=== PATIENT | female | born 1975 | race Two or more races ===

== ENCOUNTER 2025-01-14 11:04 | Emergency (ER) | payer OTHER ==
[~2025-01-14] VITALS: Ht 167.6 cm; Wt 88.5 kg
[2025-01-14] MEDS ORDERED: KETOROLAC TROME10 MG PO (11:28)
[2025-01-14] MEDS ORDERED: LEVOXYL175 MCG PO (11:28)
[2025-01-14] MEDS ORDERED: METOPROLOL SUCC25 MG PO (11:29)
[2025-01-14] MEDS ORDERED: PEPCID AC20 MG PO ×2 (11:29→15:32)
[2025-01-14] MEDS ORDERED: 0.9 % SODIUM CHLORIDE 1,000 ML IV ONE (12:00)
[2025-01-14] MEDS ORDERED: KETOROLAC TROMETHAMINE 30 MG VIAL IV ONE (12:00)
[2025-01-14 13:07] LABS: BASO % 0.4 % (0.1-1.2); EOS # 0.11 (0.04-0.54); EOS % 1.6 % (0.7-7.0); LYMPH # 2.51 (1.18-3.74); LYMPH % 36.2 % (19.3-53.1); MEAN PLATELET VOLUME 9.90 fl (9.4-12.4); MONO # 0.50 (0.24-0.82); MONO % 7.2 % (4.7-12.5); NEUT # 3.78 (1.56-6.13); NEUT % 54.5 % (34.0-71.1); RED CELL DISTRIBUTION WIDTH 12.2 % (11.6-14.4)
[2025-01-14 13:26] LABS: ALT/SGPT 32.0 U/L (12-78); AST/SGOT 19.0 U/L (15-37); BILIRUBIN TOTAL 0.91 mg/dL (0.3-1.2); BUN CREA RATIO 21.0 (7.0-25.0); CREATININE SERUM 1.01 mg/dL (0.55-1.02); GFR 58.02; GLOBULINA 3.7 G/DL (2.4-3.5); GLUCOSE FASTING 83.0 mg/dL (65-100); OSMOLALITY SERUM 289.0 MOSM/KG (275-295)
[2025-01-14 14:13] LABS: URINE APPEARANCE Clear; URINE BILIRRUBIN Negative (NEGATIVE); URINE BLOOD Small; URINE COLOR Yellow; URINE GLUCOSE Negative (NEGATIVE); URINE KETONE Trace (NEGATIVE); URINE LEUKOCYTE Negative; URINE NITRATE Negative; URINE PROTEIN Negative (NEGATIVE); URINE UROBILINOGEN 1.0 E.U./dl
[2025-01-14 14:16] LABS: URINE BACTERIA 56.3 uL (0.0-1933); URINE EPITHELIAL CELLS 2.3 uL (0.0-38.8); URINE RBC 49.2 uL (0.0-20.8); URINE WBC 3.9 uL (0.0-23.2)
[2025-01-14 14:21] LABS: INR 1.0
[2025-01-14 14:23] LABS: URINE CAST 0.00 uL (0.0-1.40)
[2025-01-14] MEDS ORDERED: METHYLPREDNISOLONE SOD SUCC 125 MG VIAL IV ONE (14:30)
[2025-01-14] MEDS ORDERED: DIPHENHYDRAMINE HCL 50 MG/ML VIAL 1ML IV ONE (14:30)
[2025-01-14] MEDS ORDERED: KETO10TA2 PO (15:32)
[2025-01-14] MEDS ORDERED: CIPRO500 MG PO (15:32)
[2025-01-14] MEDS ORDERED: PROBIOTIC1 EAC2 PO (15:32)
[2025-01-14] MEDS ORDERED: METRONIDAZOLE500 MG PO (15:32)
== END 2025-01-14 15:39 | disposition home or self-care (01) ==
LOC: ER 11:04
PROVIDERS: General Practice
DX: K62.89 Other specified diseases of anus and rectum (principal); K60.30 Anal fistula, unspecified; E03.8 Other specified hypothyroidism; Z88.5 Allergy status to narcotic agent
CPT/HCPCS: 36415; 74177; Q9965

== ENCOUNTER 2025-03-05 13:09 | Outpatient (CLI) | payer OTHER ==
[~2025-03-05 13:09] MED LIST: CIPRO500 MG PO; KETO10TA2 PO; KETOROLAC TROME10 MG PO; LEVO-T150 MCG; LEVOXYL175 MCG PO; METOPROLOL SUCC25 MG PO; METRONIDAZOLE500 MG PO; PEPCID 40MG; PEPCID AC20 MG PO; PROBIOTIC1 EAC2 PO
== END 2025-03-05 13:11 | disposition home or self-care (01) ==
LOC: NUCLEAR 13:09
PROVIDERS: ATTEND Internal Medicine
DX: I51.7 Cardiomegaly (principal)

== ENCOUNTER 2025-03-13 11:00 | Day surgery (SDC) | payer OTHER ==
[2025-02-27 13:13] VITALS: BP 127/78
[~2025-03-13] VITALS: Ht 167.6 cm; Wt 88.9 kg
[2025-03-13] MEDS ORDERED: CEFTRIAXONE SODIUM 2,000 MG VIAL ONE (12:51)
[2025-03-13] MEDS ORDERED: METRONIDAZOLE/SODIUM CHLORIDE 500 MG/100 ML PIGGYBACK IV ONE (12:51)
[2025-03-13] MEDS ORDERED: BUPIVACAINE HCL/MPF 0.5% 30ML VIAL ONE (14:10)
[2025-03-13] MEDS ORDERED: POVIDONE-IODINE 118 ML BOTT TOP ONE (14:10)
[2025-03-13] MEDS ORDERED: HEMOSTATIC MATRIX 1 KIT KIT TOP ONE (14:10)
[2025-03-13] MEDS ORDERED: LIDOCAINE HCL 1%/EPINEPHRINE 20ML VIAL IJ ONE (14:10)
[2025-03-13] MEDS ORDERED: DIBUCAINE 30 GM TUBE ONE (14:10)
== END 2025-03-13 20:55 | disposition home or self-care (01) ==
LOC: CIR.AMB 11:00
PROVIDERS: ATTEND Colon & Rectal Surgery
DX: K60.321 Anal fistula, complex, initial (principal); K60.0 Acute anal fissure; Z88.5 Allergy status to narcotic agent